=== PATIENT | female | born 1955 | race Caucasian/White ===

== ENCOUNTER 2020-12-11 10:13 | Emergency (ER) | payer MEDICARE, SELFPAY ==
--- NOTE | ~2020-12-11 | XR_ITS ---
EXAMINATION: [id number] INDICATION: Right-sided chest pain TECHNIQUE: A frontal view of the chest and for views of the right ribs were obtained. COMPARISON: None. FINDINGS: There is elevation of the right hemidiaphragm. There is mild atelectasis of the right lung base. There is no pneumothorax. Small right pleural effusion is present. The cardiomediastinal silhou ette is normal. No displaced rib fracture is identified although sensitivity is limited by body habit us. IMPRESSION: 1. No evidence of displaced rib fracture. 2. Elevation of the right hemidiaphragm with small right pleural effusion and likely passive atelecta sis of the right lung base. Reviewed, dictated and finalized at location A. IMPRESSION: 1. No evidence of displaced rib fracture. 2. Elevation of the right hemidiaphragm with small right pleural effusion and l ikely passive atelectasis of the right lung base.
[2020-12-11 10:24] VITALS: BP 135/62; PULSE 89; RESP 16; TEMP 36.6; O2SAT 100
--- NOTE | 2020-12-11 10:50 | ED.GENADULT ---
HPI - General Adult General Chief complaint: Chest Pain Stated complaint: Pain under right Breast Time Seen by Provider: 12/11/20 10:50 Source: patient Mode of arrival: ambulatory Limitations: no limitations History of Present Illness HPI narrative: Amanda Kyle is a 65 yo female with a PMH of DM, HTN, high cholesterol, who fell forward cleaning her bathtub and hit her ribs on the edge of the tub on Sunday. She states that she feels like she been getting better but her friends have been encouraging her to go get checked to see if her rib is fractured. She states that she has pain she takes deep breath, twists to the left Related Data Home Medications Medication Instructions Recorded Confirmed aspirin [Adult Low Dose Aspirin] 81 mg PO DAILY 12/11/20 12/11/20 dulaglutide [Trulicity] 3 mg SUBCUT WEEKLY 12/11/20 12/11/20 empagliflozin [Jardiance] 20 mg PO DAILY 12/11/20 12/11/20 levothyroxine 112 mcg PO DAILY 12/11/20 12/11/20 lisinopril-hydrochlorothiazide 1 tablet PO DAILY 12/11/20 12/11/20 simvastatin 40 mg PO DAILY 12/11/20 12/11/20 Allergies Allergy/AdvReac Type Severity Reaction Status Date / Time No Known Allergies Allergy Verified 12/11/20 10:35 Review of Systems Review of Systems: Narrative: CONSTITUTIONAL: Denies fever, chills, sweats. EYES: Denies visual changes, redness, discharge. ENT: Denies rhinorrhea, congestion, sore throat, otalgia. CARDIOVASCULAR: Denies chest pain, palpitations, edema. RESPIRATORY: Denies dyspnea, wheezing, cough right rib pain at 4-5 GASTROINTESTINAL: Denies abdominal pain, nausea, vomiting, diarrhea. GENITOURINARY: Denies dysuria, hematuria, abnormal discharge SKIN: Denies rash or itching. NEUROLOGIC: Denies numbness, or focal weakness. PSYCHIATRIC: Denies anxiety or depression. [facility] Past Medical History Medical History (Updated 12/11/20 @ 11:23 by Lacey Aguirre CNP) Diabetes High cholesterol HTN (hypertension) Family History Family History Other Hypertension Social History Social History (Updated 12/11/20 @ 10:57 by Lacey Aguirre CNP) Smoking status: Current every day smoker Tobacco type: cigarettes Alcohol intake: current Comments At time of signature, I agree with nursing past medical, surgical, social and family history. There is no relevant family history pertinent to the presenting complaint. Exam Narrative: Exam Narrative: GENERAL: This is a well-nourished, well-developed patient, in moderate distress with movement. HEAD: normocephalic, atraumatic. EYES: Sclera clear/white. Vision is grossly intact. EARS: External ears normal, auditory canals clear. Hearing grossly intact. NOSE: External nose normal without nasal discharge, nares without redness, no rhinorrhea. THROAT: Mucous membranes moist, NECK: Neck supple, non-tender CARDIOVASCULAR: Regular rate and rhythm without murmurs, gallops, or rubs. RESPIRATORY: Clear to auscultation. Breath sounds equal bilaterally. No wheezes, rales, or rhonchi. No tenderness on palpation on right ribs but has pain with deep breath and twist GASTROINTESTINAL: Abdomen soft, SKIN: warm, intact with no suspicious lesions or rash, good texture and turgor. NEURO: awake, alert, and oriented to person, place and time. There were no obvious focal neurologic abnormalities. Steady gait EXTREMITIES: Normal range of motion. BACK: Nontender without deformity Course Course Emergency Course: [facility] complaints of right rib pain and fall on Sunday Chest x-ray shows no displaced rib fracture, elevated have a diaphragm Started on baclofen, given incentive spirometer, may use Tylenol also for pain Vital Signs Vital signs: Vital Signs Temperature 97.9 F 12/11/20 10:24 Pulse Rate 89 12/11/20 10:24 Respiratory Rate 16 12/11/20 10:24 Blood Pressure 135/62 12/11/20 10:24 Pulse Oximetry 100 12/11/20 10:24 Tem
== END 2020-12-11 11:28 | disposition home or self-care (01) ==
PROVIDERS: Emergency Provider Nurse Practitioner; PCP Internal Medicine
DX: S20.211A Contusion of right front wall of thorax, initial encounter (principal); W22.09XA Striking against other stationary object, initial encounter; E11.9 Type 2 diabetes mellitus without complications; E78.00 Pure hypercholesterolemia, unspecified; I10 Essential (primary) hypertension; F17.210 Nicotine dependence, cigarettes, uncomplicated
CPT/HCPCS: 71101; 99213; G0463